=== PATIENT | male | born 1995 | race Caucasian/White ===

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

== ENCOUNTER 2022-12-05 08:35 | Inpatient (IN) ==
[2022-12-05] MEDS ORDERED: Lidocaine 1% w EPI 1:100,000 MDV 20 ML VIAL INJ ONE (08:40)
[2022-12-05] MEDS ORDERED: Lidocaine 4% CREAM (LMX) 5 GM TUBE TOPICAL ONE (08:40)
[2022-12-05] MEDS ORDERED: Haloperidol 5 mg/ml SDV IV/IM 5 MG/ML AMP IM ONE (09:42)
[2022-12-05] MEDS ORDERED: LORazepam 2 mg VIAL 1 ml IM ONE ×2 (09:42→10:37)
[2022-12-05] MEDS ORDERED: Lorazepam PYXIS KEY PRN ×2 (09:42→10:37)
[2022-12-05] MEDS ORDERED: Lidocaine 1% w EPI 1:100,000 MDV 50 ML VIAL INJ ONE (10:00)
[2022-12-05 13:02] LABS: Urine Benzodiazepine Screen None Detected (None Detect); Urine Cannabinoids Screen None Detected (None Detect); Urine Opiates Screen None Detected (None Detect)
[2022-12-05 13:31] LABS: ABS Lymphocytes 1.4 10^3/uL (1.0-4.8); ABS Monocytes 0.3 10^3/uL (0.0-1.1); ABS Neutrophils 4.4 10^3/uL (1.5-7.6); Eosinophil % 0.2 %; Hematocrit 40.1 % (38-53); Lymphocyte % 22.5 %; Mean Corpuscular Hemoglobin 29.7 pg (27-33); Mean Corpuscular Hgb Conc 34.8 g/dL (31-36); Mean Corpuscular Volume 85.3 fL (80-97); Mean Platelet Volume 6.3 fL (7.5-11.2); Nucleated Red Blood Cells % 0.1 /100 WBC (0.0-0.4); Platelet Count 217 10^3/uL (150-450); White Blood Count 6.1 10^3/uL (3.6-10.2)
[2022-12-05 13:46] LABS: ALT 19 U/L (7-52); AST 29 U/L (13-39); Albumin 4.8 g/dL (3.2-5.2); Albumin/Globulin Ratio 1.8 (1-3); Alkaline Phosphatase 93 U/L (35-149); Anion Gap 5 mmol/L (2-16); Blood Urea Nitrogen 8 mg/dL (6-24); CO2 Carbon Dioxide 29 mmol/L (22-32); Calcium 9.7 mg/dL (8.6-10.3); Chloride 102 mmol/L (101-111); Creatinine, Serum 1.16 mg/dL (0.67-1.17); Globulin 2.7 g/dL (2-4); Glucose 101 mg/dL (70-100); Potassium 4.2 mmol/L (3.5-5.0); Sodium 136 mmol/L (135-145); Total Protein 7.5 g/dL (6.4-8.9); eGFR CKD-EPI 89.6 (>60)
[2022-12-05 14:19] LABS: Acetaminophen < 15 mcg/mL; Alcohol, S < 13 mg/dL (<13); Salicylate < 2.50 mg/dL (<30)
[2022-12-05 14:34] LABS: TSH Ultra Thyroid Stim Horm 0.56 mcIU/mL (0.34-5.60)
[2022-12-05] MEDS ORDERED: Al Hydrox/Mg Hydrox/Simet LIQ 30 ML UDC PO PRN (17:40)
[2022-12-05] MEDS ORDERED: Buprenorp/Nalox 8-2 MG SL TAB SL SCH (21:00)
[2022-12-06] MEDS: Fluticasone NASAL SPRAY 50MCG 16 gm SPRAY BTL BOTH NARES SCH (07:53)
[2022-12-06] MEDS: Nicotine PATCH 14 MG/24 HR PATCH TRANSDERM SCH (07:53)
[2022-12-06] MEDS: Vitamin THERAPEUTIC TAB PO SCH (07:54)
[2022-12-06] MEDS ORDERED: OLANZapine 10 mg TAB*ODT PO SCH (21:00)
[2022-12-07] MEDS: Vitamin THERAPEUTIC TAB PO SCH (08:01)
[2022-12-07] MEDS: Fluticasone NASAL SPRAY 50MCG 16 gm SPRAY BTL BOTH NARES SCH (08:06)
[2022-12-07] MEDS: Nicotine PATCH 14 MG/24 HR PATCH TRANSDERM SCH (08:06)
[2022-12-07 08:28] LABS: HDL Cholesterol 30.3 mg/dL
[2022-12-07] MEDS ORDERED: OLANZapine 5 mg TAB *ODT PO PRN (13:22)
[2022-12-07] MEDS ORDERED: OLANZapine 5 mg TAB *ODT PO SCH (21:00)
[2022-12-07] MEDS: Nicotine Lozenge mini 2 MG LOZNG.MINI MT PRN (21:48)
[2022-12-08] MEDS: Vitamin THERAPEUTIC TAB PO SCH (12:25)
[2022-12-08] MEDS: Nicotine Lozenge mini 2 MG LOZNG.MINI MT PRN (12:25)
[2022-12-08] MEDS: Nicotine PATCH 14 MG/24 HR PATCH TRANSDERM SCH (12:26)
[2022-12-08] MEDS: Fluticasone NASAL SPRAY 50MCG 16 gm SPRAY BTL BOTH NARES SCH (12:26)
[2022-12-08] MEDS: OLANZapine 10 mg TAB*ODT PO SCH (20:12)
[2022-12-09] MEDS: Vitamin THERAPEUTIC TAB PO SCH (17:12)
[2022-12-09] MEDS: Nicotine PATCH 14 MG/24 HR PATCH TRANSDERM SCH (17:12)
[2022-12-09] MEDS: Fluticasone NASAL SPRAY 50MCG 16 gm SPRAY BTL BOTH NARES SCH (17:12)
[2022-12-09] MEDS: OLANZapine 10 mg TAB*ODT PO SCH (20:06)
[2022-12-09] MEDS: OLANZapine 5 mg TAB *ODT PO SCH (20:06)
[2022-12-09] MEDS: Nicotine Lozenge mini 2 MG LOZNG.MINI MT PRN (20:13)
[2022-12-10] MEDS: Vitamin THERAPEUTIC TAB PO SCH (10:15)
[2022-12-10] MEDS: Nicotine PATCH 14 MG/24 HR PATCH TRANSDERM SCH (10:15)
[2022-12-10] MEDS: Fluticasone NASAL SPRAY 50MCG 16 gm SPRAY BTL BOTH NARES SCH (10:15)
[2022-12-10] MEDS: OLANZapine 10 mg TAB*ODT PO SCH (19:50)
[2022-12-10] MEDS: OLANZapine 5 mg TAB *ODT PO SCH (19:51)
[2022-12-10] MEDS: Nicotine Lozenge mini 2 MG LOZNG.MINI MT PRN (19:53)
[2022-12-11] MEDS: Nicotine PATCH 14 MG/24 HR PATCH TRANSDERM SCH (09:31)
[2022-12-11] MEDS: Fluticasone NASAL SPRAY 50MCG 16 gm SPRAY BTL BOTH NARES SCH (09:31)
[2022-12-11] MEDS: Vitamin THERAPEUTIC TAB PO SCH (09:31)
[2022-12-11] MEDS: Nicotine Lozenge mini 2 MG LOZNG.MINI MT PRN (16:52)
[2022-12-11] MEDS: OLANZapine 5 mg TAB *ODT PO SCH (19:17)
[2022-12-11] MEDS: OLANZapine 10 mg TAB*ODT PO SCH (19:17)
[2022-12-12] MEDS: Vitamin THERAPEUTIC TAB PO SCH (10:39)
[2022-12-12] MEDS: Nicotine PATCH 14 MG/24 HR PATCH TRANSDERM SCH (10:40)
[2022-12-12] MEDS: Fluticasone NASAL SPRAY 50MCG 16 gm SPRAY BTL BOTH NARES SCH (10:40)
[2022-12-12] MEDS: OLANZapine 5 mg TAB *ODT PO SCH (20:32)
[2022-12-12] MEDS: OLANZapine 10 mg TAB*ODT PO SCH (20:33)
[2022-12-13] MEDS: Vitamin THERAPEUTIC TAB PO SCH (09:19)
[2022-12-13] MEDS: Nicotine PATCH 14 MG/24 HR PATCH TRANSDERM SCH (09:25)
[2022-12-13] MEDS: Fluticasone NASAL SPRAY 50MCG 16 gm SPRAY BTL BOTH NARES SCH (11:46)
[2022-12-13] MEDS: Nicotine GUM 2MG FRUIT FLAVOR PO PRN (13:20)
[2022-12-13] MEDS: OLANZapine 10 mg TAB*ODT PO SCH (20:20)
[2022-12-13] MEDS: OLANZapine 5 mg TAB *ODT PO SCH (20:21)
[2022-12-13] MEDS: Nicotine Lozenge mini 2 MG LOZNG.MINI MT PRN (20:50)
[2022-12-14] MEDS: Fluticasone NASAL SPRAY 50MCG 16 gm SPRAY BTL BOTH NARES SCH (09:46)
[2022-12-14] MEDS: Vitamin THERAPEUTIC TAB PO SCH ×2 (09:46→10:15)
[2022-12-14] MEDS: Nicotine PATCH 14 MG/24 HR PATCH TRANSDERM SCH (09:46)
[2022-12-14] MEDS ORDERED: buPROPion SR 100 mg TAB.SR PO ONE (10:06)
[2022-12-14] MEDS: OLANZapine 10 mg TAB*ODT PO SCH (20:08)
[2022-12-15] MEDS: Nicotine PATCH 14 MG/24 HR PATCH TRANSDERM SCH (08:24)
[2022-12-15] MEDS: Vitamin THERAPEUTIC TAB PO SCH (08:24)
[2022-12-15] MEDS: Fluticasone NASAL SPRAY 50MCG 16 gm SPRAY BTL BOTH NARES SCH (08:25)
[2022-12-15] MEDS: buPROPion SR 100 mg TAB.SR PO SCH (10:51)
[2022-12-15] MEDS: Nicotine Lozenge mini 2 MG LOZNG.MINI MT PRN ×2 (10:52→19:45)
[2022-12-15] MEDS: OLANZapine 10 mg TAB*ODT PO SCH (20:12)
[2022-12-16] MEDS: Nicotine PATCH 14 MG/24 HR PATCH TRANSDERM SCH (11:01)
[2022-12-16] MEDS: Fluticasone NASAL SPRAY 50MCG 16 gm SPRAY BTL BOTH NARES SCH (11:01)
[2022-12-16] MEDS: Vitamin THERAPEUTIC TAB PO SCH (11:01)
[2022-12-16] MEDS: Nicotine Lozenge mini 2 MG LOZNG.MINI MT PRN (19:17)
[2022-12-16] MEDS: OLANZapine 10 mg TAB*ODT PO SCH (20:10)
[2022-12-16] MEDS: buPROPion SR 100 mg TAB.SR PO SCH (21:04)
[2022-12-17] MEDS: Nicotine PATCH 14 MG/24 HR PATCH TRANSDERM SCH (09:13)
[2022-12-17] MEDS: Fluticasone NASAL SPRAY 50MCG 16 gm SPRAY BTL BOTH NARES SCH (09:13)
[2022-12-17] MEDS: Vitamin THERAPEUTIC TAB PO SCH (09:14)
[2022-12-17] MEDS: Nicotine Lozenge mini 2 MG LOZNG.MINI MT PRN (09:15)
[2022-12-17] MEDS: Nicotine GUM 2MG FRUIT FLAVOR PO PRN (18:46)
[2022-12-17] MEDS: OLANZapine 10 mg TAB*ODT PO SCH (19:52)
[2022-12-18] MEDS: Vitamin THERAPEUTIC TAB PO SCH (10:50)
[2022-12-18] MEDS: Nicotine PATCH 14 MG/24 HR PATCH TRANSDERM SCH (10:50)
[2022-12-18] MEDS: Fluticasone NASAL SPRAY 50MCG 16 gm SPRAY BTL BOTH NARES SCH (10:50)
[2022-12-18] MEDS: Nicotine Lozenge mini 2 MG LOZNG.MINI MT PRN ×2 (10:51→22:09)
[2022-12-18] MEDS: Nicotine GUM 2MG FRUIT FLAVOR PO PRN (17:43)
[2022-12-18] MEDS: OLANZapine 10 mg TAB*ODT PO SCH (20:05)
[2022-12-19] MEDS: Vitamin THERAPEUTIC TAB PO SCH (10:33)
[2022-12-19] MEDS: Fluticasone NASAL SPRAY 50MCG 16 gm SPRAY BTL BOTH NARES SCH (10:33)
[2022-12-19] MEDS: Nicotine PATCH 14 MG/24 HR PATCH TRANSDERM SCH (10:33)
[2022-12-19] MEDS: Nicotine GUM 2MG FRUIT FLAVOR PO PRN (17:35)
[2022-12-19] MEDS: OLANZapine 10 mg TAB*ODT PO SCH (20:55)
[2022-12-20] MEDS: Vitamin THERAPEUTIC TAB PO SCH (09:20)
[2022-12-20] MEDS: Nicotine PATCH 14 MG/24 HR PATCH TRANSDERM SCH (09:20)
[2022-12-20] MEDS: Fluticasone NASAL SPRAY 50MCG 16 gm SPRAY BTL BOTH NARES SCH (12:44)
[2022-12-20] MEDS: Nicotine GUM 2MG FRUIT FLAVOR PO PRN ×3 (17:03→23:06)
[2022-12-20] MEDS: Nicotine Lozenge mini 2 MG LOZNG.MINI MT PRN ×2 (18:44→22:12)
[2022-12-20] MEDS: OLANZapine 10 mg TAB*ODT PO SCH (20:05)
[2022-12-21] MEDS: Vitamin THERAPEUTIC TAB PO SCH (09:14)
[2022-12-21] MEDS: Nicotine PATCH 14 MG/24 HR PATCH TRANSDERM SCH (09:21)
[2022-12-21] MEDS: Nicotine GUM 2MG FRUIT FLAVOR PO PRN ×2 (11:20→18:36)
[2022-12-21] MEDS: Fluticasone NASAL SPRAY 50MCG 16 gm SPRAY BTL BOTH NARES SCH (14:45)
[2022-12-21] MEDS: OLANZapine 10 mg TAB*ODT PO SCH (20:21)
[2022-12-21] MEDS: Nicotine Lozenge mini 2 MG LOZNG.MINI MT PRN (21:38)
[2022-12-22] MEDS: Fluticasone NASAL SPRAY 50MCG 16 gm SPRAY BTL BOTH NARES SCH (09:28)
[2022-12-22] MEDS: Vitamin THERAPEUTIC TAB PO SCH (09:29)
[2022-12-22] MEDS: Nicotine GUM 2MG FRUIT FLAVOR PO PRN ×4 (09:30→21:07)
[2022-12-22] MEDS: Nicotine PATCH 14 MG/24 HR PATCH TRANSDERM SCH (10:04)
[2022-12-22] MEDS: OLANZapine 10 mg TAB*ODT PO SCH (20:24)
[2022-12-23] MEDS: Vitamin THERAPEUTIC TAB PO SCH (09:43)
[2022-12-23] MEDS: Fluticasone NASAL SPRAY 50MCG 16 gm SPRAY BTL BOTH NARES SCH (13:07)
[2022-12-23] MEDS: Nicotine PATCH 14 MG/24 HR PATCH TRANSDERM SCH (13:07)
[2022-12-23] MEDS: Nicotine Lozenge mini 2 MG LOZNG.MINI MT PRN ×2 (17:44→22:26)
[2022-12-23] MEDS: OLANZapine 10 mg TAB*ODT PO SCH (19:56)
[2022-12-23] MEDS: Nicotine GUM 2MG FRUIT FLAVOR PO PRN (20:38)
[2022-12-24] MEDS: Vitamin THERAPEUTIC TAB PO SCH (07:38)
[2022-12-24] MEDS: Nicotine PATCH 14 MG/24 HR PATCH TRANSDERM SCH (07:39)
[2022-12-24] MEDS: Fluticasone NASAL SPRAY 50MCG 16 gm SPRAY BTL BOTH NARES SCH (07:39)
[2022-12-24 10:26] VITALS: BP 127/57
== END 2022-12-24 09:45 | DRG 351 ==
LOC: ED 08:35 → BSU 16:00 → EDHOLD 17:10 → BSU 18:40
PROVIDERS: ADMIT Psychiatry & Neurology Psychiatry; ATTEND Psychiatry & Neurology Psychiatry